=== PATIENT | female | born 1965 ===

== ENCOUNTER → 2018-06-25 | Outpatient (CLI) | payer OTHER ==
--- NOTE | 2018-06-26 08:23 | RADIOLOGY IMAGING REPORT ---
FAC[place] [facility] [place]IENT NAME: MINE LINDSEY : [id number] MR: [id number] V: [id number] EXAM DATE: [id number] ORDERING PHYSICIAN: KATIUSKA LUIS TECHNOLOGIST: Chelsea Jones PROCEDURE:BILATERAL DIGITAL SCREENING MAMMOGRAM WITH CAD ASSISTED INTERPRETATION & 3D TOMOSYNTHESIS COMPARISON:Prior mammograms 10/25/16, 10/17/16, 10/11/16, 05/16/12, 07/14/11. INDICATIONS:screening FINDINGS: Dense heterogeneous fibroglandular tissue is seen throughout the breasts. Stereotactic biopsy clip is seen in the 9 o'clock position of the Left breast. The parenchymal pattern has otherwise remained stable allowing for difference in mammographic technique & patient positioning. There is no evidence of malignant appearing mass, malignant appearing calcifications or other secondary sign of malignancy in either breast. DIAGNOSTIC CATEGORY 2--BENIGN FINDING. RECOMMENDATIONS: ROUTINE MAMMOGRAM AND CLINICAL EVALUATION. IMPRESSION: BIRADS 2: Benign finding. No significant abnormality is seen. Dictated by: Rhina Vela M.D. on 06/25/2018 at 16:14 Transcribed by: [email or web address] on 06/26/2018 at 7:51 Approved by: Rhina Vela M.D. on 06/26/2018 at 8:22 [facility]
== END ==
LOC: MAMO 01:52
PROVIDERS: ATTEND Physician Assistant
DX: Z12.31 Encounter for screening mammogram for malignant neoplasm of breast (principal)
CPT/HCPCS: 77063; 77067

== ENCOUNTER → 2018-08-08 | Day surgery (SDC) | payer OTHER ==
[~2018-08-08] VITALS: Ht 167.6 cm; Wt 59.0 kg
[~2018-08-08] MED LIST: LIDOCAINE/SOD BICARB 8.4% SYR ID ONE; NORMOSOL R SOLN(*) 1000 ML BAG 1,000 ML IV PRN; PROPOFOL EMUL(*) 10MG/ML 20 ML 20 ML ONE
[2018-08-08 08:29] VITALS: BP 108/76
[2018-08-08 10:02] VITALS: BP 98/61
[2018-08-08 10:30] VITALS: BP 115/90
[2018-08-08 10:32] VITALS: BP 120/85
[2018-08-08 10:33] VITALS: BP 101/77
== END ==
LOC: OR 01:44
PROVIDERS: ATTEND Family Medicine
DX: Z12.11 Encounter for screening for malignant neoplasm of colon (principal)
CPT/HCPCS: 00812; 45378; 81025; J2704